=== PATIENT | male | born 1965 | race Two or more races ===

== ENCOUNTER 2019-12-19 09:32 | Day surgery (SDC) | payer BC ==
[2019-12-18 13:13] LABS: BASOPHILS % (AUTO) 1.6 % (0.0-2.0); HEMATOCRIT 46.3 % (42.0-52.0); HEMOGLOBIN 15.5 G/DL (14.2-18.0); LYMPHOCYTES % (AUTO) 32.6 % (20.0-45.0); MEAN CORPUSCULAR VOLUME 90 FL (80-99); MONOCYTES % (AUTO) 9.2 % (1.0-10.0); NEUTROPHILS % (AUTO) 48.7 % (45.0-75.0); PLATELET COUNT 223 K/UL (150-450); RED BLOOD COUNT 5.13 M/UL (4.70-6.10); RED CELL DISTRIBUTION WIDTH 11.7 % (11.6-14.8); WHITE BLOOD COUNT 7.3 K/UL (4.8-10.8)
[2019-12-18 13:26] LABS: ANION GAP 3 mmol/L (5-15); CALCIUM 9.5 MG/DL (8.5-10.1); CARBON DIOXIDE 33 MMOL/L (21-32); CHLORIDE 103 MMOL/L (98-107); CREATININE 1.1 MG/DL (0.55-1.30); POTASSIUM 4.7 MMOL/L (3.5-5.1); SODIUM 139 MMOL/L (136-145)
[2019-12-18 13:30] LABS: BLOOD UREA NITROGEN 22 mg/dL (7-18)
[2019-12-18 13:41] LABS: INR 0.9 (0.9-1.1)
--- NOTE | 2019-12-18 13:59 | Diagnostic Imaging Report ---
Indication: Cough Technique: One view of the chest Comparison: none Findings: Lungs and pleural spaces are clear. Heart size is normal. Impression: No acute process
--- NOTE | 2019-12-18 17:39 | Cardiology Report ---
APPROVED REPORT EKG Measurement Heart [id number] <Conclusion> Sinus bradycardia Rightward axis Borderline ECG
[~2019-12-19] VITALS: Ht 188 cm; Wt 85.3 kg
[2019-12-19] VITALS (9 sets, daily range): BP systolic 107–130; BP diastolic 58–87
[~2019-12-19 09:32] MED LIST: ceFAZolin sod 1 GM in NS 55 ML IVPB ONE
[2019-12-19] MEDS ORDERED: Bupivacaine 0.5% Inj 30 ml vial INJ ONE (10:45)
[2019-12-19] MEDS ORDERED: NS Irrig 1000ml IRRIG ONE ×2 (10:51→11:12)
[2019-12-19] MEDS ORDERED: fentaNYL 100 mcg/2 mL IV ONE ×2 (11:30→12:26)
[2019-12-19] MEDS ORDERED: Midazolam 2mg/2ml Inj ONE (11:31)
--- NOTE | 2019-12-19 11:58 | Pre-Procedure Note/Attestation ---
Pre-Procedure Note/Attestation Complete Prior to Procedure Planned Procedure: left Procedure Narrative: left spermatocelectomy Indications for Procedure Pre-Operative Diagnosis: left spermatocele Attestation I attest that I discussed the nature of the procedure; its benefits; risks and complications; and alternatives (and the risks and benefits of such alternatives), prior to the procedure, with the patient (or the patient's legal patient accounting representative). I attest that, if there was a reasonable possibility of needing a blood transfusion, the patient (or the patient's legal patient accounting representative) was given the [facility] standardized written summary, pursuant to the Ricardo Carmencita Blood Safety Act ([place] Health and Safety Code # 1645, as amended). I attest that I re-evaluated the patient just prior to the surgery and that there has been no change in the patient's H&P, except as documented below: Darren Valdes MD Dec 19, 2019 11:58
[2019-12-19] MEDS ORDERED: Sterile Water Irrig 1000ml IRRIG ONE (12:00)
[2019-12-19] MEDS ORDERED: Tylenol #3 tab (300mg/30mg) ORAL PRN (12:00)
[2019-12-19] MEDS ORDERED: HYDROcodone/Acetamin 5/325 tab ORAL PRN (12:00)
[2019-12-19] MEDS ORDERED: HYDROmorphone 1mg/ml Carpuject SUBQ PRN (12:00)
[2019-12-19] MEDS ORDERED: LR 1000ml ONE (12:00)
--- NOTE | 2019-12-19 12:01 | Brief Operative Note ---
Immediate Post Operative Note Operative Note Pre-op Diagnosis: left spermatocele Procedure: left spermatocelectomy Post-op Diagnosis: same Post-op Diagnosis: same as pre-op Surgeon: rosana valdes Specimen: yes Complications: none Condition: stable Fluids: 500 Estimated Blood Loss: minimal Implant(s) used?: No Darren Valdes MD Dec 19, 2019 12:00
[2019-12-19] MEDS ORDERED: Metoclopramide 10mg/2ml Inj ONE (12:26)
[2019-12-19] MEDS ORDERED: Lidocaine 1% MPF 10mg/ml 5ml ONE (12:26)
[2019-12-19] MEDS ORDERED: ePHEDrine 50mg/ml Inj ONE (12:48)
[2019-12-19] MEDS ORDERED: fentaNYL 100 mcg/2 mL IV PRN (13:00)
[2019-12-19] MEDS ORDERED: Metoclopramide 10mg/2ml Inj IVP PRN (13:00)
[2019-12-19] MEDS ORDERED: Ketorolac 30mg Inj ONE (13:00)
--- NOTE | 2019-12-19 13:00 | Anethesia Preoperative Eval ---
Anesthesia Pre-op PMH/ROS General Date of Evaluation: Dec 19, 2019 Time of Evaluation: 11:45 Anesthesiologist: tiffanie ASA Score: ASA 2 Mallampati Score Class I : Soft palate, uvula, fauces, pillars visible Class II: Soft palate, uvula, fauces visible Class III: Soft palate, base of uvula visible Class IV: Only hard plate visible Mallampati Classification: Class II Surgeon: Lucio Diagnosis: spermatocele Surgical Procedure: [place] Anesthesia History: none Social History: smoking, alcohol use Family History: no anesthesia problems Allergies: Coded Allergies: No Known Allergies (Unverified , 12/18/19) Medications: see eMAR Patient NPO?: Yes NPO Date: Dec 19, 2019 NPO Time: 00:01 Past Medical History Cardiovascular: Denies: HTN, CAD, MA, valve dz, arrhythmia, other Pulmonary: Denies: asthma, COPD, CHERI, other Gastrointestinal/Genitourinary: Denies: GERD, CRI, ESRD, other Neurologic/Psychiatric: Denies: dementia, CVA, depression/anxiety, TIA, other Endocrine: Denies: DM, hypothyroidism, steroids, other HEENT: Denies: cataract (L), cataract (R), glaucoma, CRAIG (L), CRAIG (R), other Hematology/Immune: Denies: anemia, DVT, bleeding disorder, other Musculoskeletal/Integumentary: Denies: OA, RA, DJD, DDD, edema, other PSxH Narrative: appendectmy Anesthesia Pre-op Phys. Exam Physician Exam Last Vital Signs Date Time Temp Pulse Resp B/P (MAP) Pulse Ox O2 Delivery O2 Flow Rate FiO2 12/19/19 10:12 Room Air 12/19/19 09:57 96.6 44 18 129/78 99 Constitutional: NAD Neurologic: CN 2-12 intact Cardiovascular: RRR Respiratory: CTA Gastrointestinal: S/NT/ND Airway Exam Mallampati Classification 2 Mallampati Score: Class II MO: full ROM: full Teeth: missing - right front Dentures: no upper, no lower Anesthesia Pre-op A/P Studies Pre-op Studies: EKG - SR Risk Assessment & Plan Assessment: covid neg Plan: General Status Change Before Surgery: No Pre-Antibiotics Drug: ancef Given Within 1 Hr of Incision: Yes Time Given: 12:00 Zoe Montes CRNA Dec 19, 2019 13:00
--- NOTE | 2019-12-19 13:18 | Immediate Post-Op Evaluation ---
Immediate Post-Op Evalulation Immediate Post-Op Evalulation Procedure: Left Spermatocelectomy Date of Evaluation: Dec 19, 2019 Time of Evaluation: 13:18 IV Fluids: 1000 Estimated Blood Loss: 5 Blood Pressure Systolic: 133 Blood Pressure Diastolic: 70 Pulse Rate: 70 Respiratory Rate: 14 O2 Sat by Pulse Oximetry: 99 Temperature (Fahrenheit): 97.3 Nausea: No Vomiting: No Complications none Patient Status: awake, reacts, patent Hydration Status: adequate Drug: ancef Given Within 1 Hr of Incision: Yes Time Given: 12:05 Zoe Montes CRNA Dec 19, 2019 13:18
--- NOTE | 2019-12-19 13:29 | Pre-op HX & Phy Repo 2 SIG ---
DATE OF ADMISSION: 12/19/2019 PRESURGICAL INTERNAL MEDICINE HISTORY AND PHYSICAL DATE OF EVALUATION: 12/19/2019. REASON FOR EVALUATION: I was asked by Dr. Darren Valdes to see this 54-year-old male, who is going for elective surgery on the left testicle. The patient has left spermatocele of left testicle. See full History and Physical by urologist, Dr. Darren Valdes. The patient was evaluated in the operative department of [facility]. PAST MEDICAL HISTORY: Denies history of hypertension. No chest pain. No palpitation. No heart attack. No respiratory problem, asthma, or bronchitis. No diabetes. Denies history of GI problem. Denies history of renal failure. No anemia. No thyroid problem. SURGICAL HISTORY: Appendectomy and kidney biopsy. FAMILY HISTORY: Mother from complication of breast cancer and father at age of 71 from heart attack. ALLERGIES: Not known. PRESENT MEDICATIONS: Occasionally vitamin supplements. HABITS: The patient is a vaper tobacco, wine up to two glasses daily and occasionally marijuana. PHYSICAL EXAMINATION: GENERAL: The patient is alert, well-developed and well-nourished male in his 50s. No acute distress. VITAL SIGNS: Blood pressure 129/78, temperature 96.6, pulse 44, respirations 18, O2 saturation 99% on room air. SKIN: On the right plasencia above ankle approximately 1 cm diameter scab approximately one month old. The patient's skin is warm, dry. No pigmentation. No jaundice. LYMPHATICS: Lymph nodes not enlarged. HEENT: Head, normocephalic, atraumatic. Ears, clear. Eyes, muscles intact. No jaundice or conjunctivitis. Mouth, clear and moist. No dentures. NECK: Supple. No jugular venous distention. Carotids artery +2. Trachea midline. CHEST: No deformity or asymmetry. LUNGS: Clear to auscultation and percussion. HEART: Sinus bradycardia. No murmur. No S3, S4. ABDOMEN: Soft, benign. No palpable mass. No rebound. EXTREMITIES: No edema. No varices. No deformities. GENITOURINARY TRACT: See Dr. Darren Valdes's note. No CVA tenderness. NERVOUS SYSTEM: No tremor. No nystagmus. No asymmetry. DIAGNOSTIC DATA: Electrocardiogram, sinus bradycardia 48 per minute, rightward axis. The patient is NPO from 9 p.m. yesterday. LABORATORY DATA: White blood cells 7.3, hemoglobin 15.5, hematocrit 46.3, eosinophil 8.0. PT 10.3, INR 0.9. Sodium 139, potassium 4.7, BUN 22, creatinine 1.0, estimated GFR more than 60, glucose 98 mg/dL, calcium 9.5. IMPRESSION: 1. Left spermatocele of testicle. 2. Sinus bradycardia, asymptomatic. 3. Eosinophilia, unexplained. PLAN: Spermatocelectomy, left testicle per Dr. Darren Valdes. CONCLUSION: The patient is a 54-year-old male with no previous risk factor of lung, diabetes. The patient in sinus bradycardia asymptomatic and vital signs stable. ECG, sinus bradycardia with rightward axis. The patient is NPO. The patient's condition optimized for surgery. Thank you very much, Dr. Valdes, for privilege to participate in presurgical care of this interesting patient. Eboni Valadez M.D. DR: PHUNOG JOB#: [id number] CC:
--- NOTE | 2019-12-19 14:48 | 48 Hour Post Anesthesia Eval ---
Post Anesthesia Evaluation Procedure: Left Spermatocelectomy Date of Evaluation: Dec 19, 2019 Time of Evaluation: 14:48 Blood Pressure Systolic: 127 0: 70 Pulse Rate: 65 Respiratory Rate: 14 O2 Sat by Pulse Oximetry: 98 Airway: patent Nausea: No Vomiting: No Hydration Status: adequate Cardiopulmonary Status: stable Mental Status/LOC: patient returned to baseline Post-Anesthesia Complications: none Follow-up care needed: N/A Zoe Montes CRNA Dec 19, 2019 14:48
[2019-12-19] MEDS ORDERED: D5 1/2NS 1,000 ML IV SCH (16:00)
--- NOTE | 2019-12-25 18:15 | Operative Note - Dictated ---
DATE OF OPERATION: 12/19/2019 PREOPERATIVE DIAGNOSIS: Left epididymal cyst versus spermatocele. POSTOPERATIVE DIAGNOSIS: Left epididymal cyst versus spermatocele. OPERATION: Left spermatocelectomy. SALES & SERVICE ASSOCIATE: Darren Valdes MD ANESTHESIA: General. FINDINGS: Large left spermatocele. INDICATIONS FOR SURGERY: Patient had above findings for a long period of time with significant scrotal disfigurement. Treatment option were explained to him in great length including all potential complications. He signed a consent. DESCRIPTION OF SURGERY: He was brought to the operating room, placed in supine position. Prepped and draped in a standard fashion. Under general anesthesia, a midline scrotal incision was made and the left testicle and spermatocele was mobilized. After that, using sharp and blunt dissection, spermatocele was resected. tied and sent for pathologic examination. All small supporting vessels were ligated. Hemostasis was completed and the wound was closed in 3 layers. Subcuticular closure for the skin. Patient tolerated the procedure well. No evidence of complications. Darren Valdes M.D. DR: HECTOR JOB#: [id number] CC:
== END 2019-12-19 12:50 | disposition home or self-care (01) ==
LOC: SUR 09:32
DX: N43.41 Spermatocele of epididymis, single (principal); R00.1 Bradycardia, unspecified; Z90.89 Acquired absence of other organs; Z82.49 Family history of ischemic heart disease and other diseases of the circulatory system; D72.1 Eosinophilia; F17.200 Nicotine dependence, unspecified, uncomplicated
CPT/HCPCS: 36415; 54840; 71045; 80048; 85025; 85610; 85730; 93005; 94003; J1100; J1885; J2250; J2405; J2704; J2765; J3010; J3490; J7120; U0002; 94150